=== PATIENT | female | born 1990 | race Caucasian/White ===

== ENCOUNTER 2019-11-13 21:24 | Emergency (ER) | payer MEDICAID ==
[~2019-11-13] VITALS: Ht 162.6 cm; Wt 59.0 kg
[2019-11-13 22:00] VITALS: BP 128/69
== END 2019-11-13 23:10 | disposition home or self-care (01) ==
LOC: ER 21:24
DX: J10.1 Influenza due to other identified influenza virus with other respiratory manifestations (principal); R50.81 Fever presenting with conditions classified elsewhere
CPT/HCPCS: 99283